=== PATIENT | female | born 1960 | race African-American/Black ===

== ENCOUNTER 2019-05-28 03:34 | Emergency (ER) | payer OTHER ==
[~2019-05-28] VITALS: Ht 170.2 cm; Wt 88.5 kg
[2019-05-28] MEDS ORDERED: CLONAZEPAM 1 MG1 M1 PO (04:01)
[2019-05-28] MEDS ORDERED: FLEXERIL PO (05:02)
[2019-05-28] MEDS ORDERED: HYDROCODON-ACE1 EAC7 PO (05:02)
[2019-05-28] MEDS ORDERED: IBUPROFEN 800800 MG PO (05:02)
[2019-05-28 05:10] VITALS: BP 142/76
== END 2019-05-28 05:10 | disposition home or self-care (01) ==
LOC: M.ERS 03:34
DX: S20.211A Contusion of right front wall of thorax, initial encounter (principal); M54.5 Low back pain; V89.2XXA Person injured in unspecified motor-vehicle accident, traffic, initial encounter; Y93.89 Activity, other specified; Y92.89 Other specified places as the place of occurrence of the external cause; Y99.8 Other external cause status